=== PATIENT | female | born 1995 | race Caucasian/White ===

== ENCOUNTER 2017-09-15 15:52 | Emergency (ER) | END 2017-09-15 17:39 | disposition home or self-care (01) ==

== ENCOUNTER 2018-08-31 18:04 | Emergency (ER) | payer OTHER ==
[~2018-08-31] VITALS: Ht 162.6 cm; Wt 65.8 kg
[2018-08-31 18:25] VITALS: Ht 162.6 cm; Wt 65.8 kg
[2018-08-31] MEDS ORDERED: ACETAMINOPHEN 325 MG TAB PO ONE (20:00)
[2018-08-31] MEDS ORDERED: ACET-141 PO (20:43)
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
[2018-08-31 20:54] VITALS: BP 106/66; PULSE 63; RESP 18
== END 2018-08-31 20:55 | disposition home or self-care (01) ==
LOC: FTE 18:04
DX: R51 Headache (principal); R10.12 Left upper quadrant pain
CPT/HCPCS: 36415; 85025; Z7502; Z7610; 99283